=== PATIENT | female | born 1955 | race Caucasian/White ===

== ENCOUNTER 2023-07-01 13:20 | Outpatient (CLI) | payer MEDICARE, MEDICAID, SELFPAY ==
--- NOTE | 2023-07-01 13:33 | XR_ITS ---
WS: [id number] Left knee, 3 views, 07/01/2023 Clinical Data: PAIN IN LEFT KNEE Comparison: Left knee, 05/07/2019 Findings: There is severe narrowing of the medial joint compartment with sclerosis and irregularity of the adjo ining articular surfaces. There is a spur of the medial femoral condyle and medial tibial plateau. Th e posterior patella shows irregularity and spurring. There are no fractures or dislocations. The soft tissues are normal. Impression: Severe osteoarthritis of the medial joint compartment and spurring of the posterior left patella. Kellgren-Vel Classification: grade 4 (severe): large osteophytes, marked narrowing of joint spac e, severe sclerosis and definite deformity of bone ends
== END 2023-07-01 13:21 | disposition home or self-care (01) ==
PROVIDERS: PCP Nurse Practitioner Family; Visit Provider Nurse Practitioner
DX: M17.12 Unilateral primary osteoarthritis, left knee (principal); M25.762 Osteophyte, left knee
CPT/HCPCS: 73562

== ENCOUNTER 2023-09-06 13:30 | Outpatient (CLI) | payer MEDICARE, MEDICAID, SELFPAY ==
--- NOTE | 2023-09-06 13:39 | XR_ITS ---
WS: [id number] DEXA (DUAL ENERGY X-RAY ABSORPTIOMETRY) Bone mineral density was performed using a Senic machine. HISTORY: ASYMPTOMATIC MENOPAUSAL STATE COMPARISON: None available. Lumbar spine BMD (L1-L4): 1.048 g/cm2 T score: -1.1 Z score: -0.7 Total hip BMD: Left: 0.676 g/cm2. T score: -2.6 Z score: -2.2 Right: 0.722 g/cm2. T score: -2.3 Z score: -1.8 10 year probability of a major osteoporotic fracture is 21.2%. IMPRESSION: OSTEOPOROSIS based upon the WHO classification for females.
== END 2023-09-06 13:31 | disposition home or self-care (01) ==
LOC: RAD 13:31
PROVIDERS: PCP Nurse Practitioner; Visit Provider Nurse Practitioner
DX: Z78.0 Asymptomatic menopausal state (principal)
CPT/HCPCS: 77080

== ENCOUNTER 2024-04-07 00:26 | Emergency (ER) | payer MEDICARE, MEDICAID, SELFPAY ==
[2024-04-07 00:28] VITALS: BP 135/83; PULSE 95; RESP 16; TEMP 36.8; O2SAT 97
--- NOTE | 2024-04-07 01:10 | ED_ITS ---
HPI - Abdominal Pain 2 General: Chief Complaint: Abdominal Pain Stated Complaint: Kidneys are not working\Swelling Time Seen by Provider: 04/07/24 00:39 History of Present Illness: He presents to the ER with right-sided low back flank pain has been going on for a couple days. Patient says she has been pushing fluid which has helped. Patient also complains of lower extremity swelling during the same time. Patient denies any nausea vomiting fevers chills cough cold diarrhea constipation etc. Related Data Previous Rx's Medication Instructions Recorded sulfamethoxazole 800 1 tab PO BID #14 tabs 04/07/24 mg-trimethoprim 160 mg tablet (Bactrim DS) Allergies Allergy/AdvReac Type Severity Reaction Status Date / Time No Known Allergies Allergy Verified 04/07/24 00:35 Review of Systems 2 General: Reports: 10 or more systems reviewed and unremarkable except in HPI and below Physical Exam 2 Const: COMMON NORMALS: no acute distress, average body habitus, patient oriented x3, no limitations, healthy appearing, alert and well nourished HENMT: COMMON NORMALS: normocephalic, atraumatic, hearing grossly normal bilaterally, external ears normal, Normal external nose present and moist oral mucous membranes HEAD & SCALP: normocephalic and atraumatic NOSE: Normal external nose present EXTERNAL EAR: Yes external ears normal Neck/C-Spine: COMMON NORMALS: full ROM, no lymphadenopathy, supple, no meningeal signs, no JVD and Thyroid normal THYROID: Thyroid normal Resp: COMMON NORMALS: normal respiratory effort, No retractions, No use of accessory muscles and clear to auscultation bilaterally AUSCULTATION: clear to auscultation bilaterally Cardio: COMMON NORMALS: no JVD, regular rate, regular rhythm, S1 normal heart sound present, S2 normal heart sound present, No gallops present (Cardio), No clicks present (Cardio), No murmurs present (Cardio) and No rub (Cardio) R ATE: regular rate RHYTHM: regular rhythm HEART SOUNDS: S1 normal heart sound present and S2 normal heart sound present GI: COMMON NORMALS: Normal to inspection, nondistended, normoactive bowel sounds present, Soft to palpation, non-tender, No hepatosplenomegaly present and no masses PALPATION: Yes Soft to palpation and Yes No hepatosplenomegaly present Extremity: OTHER: Bilateral lower extremity edema 1-2+ pitting Neuro: COMMON NORMALS: patient oriented x3 SENSORIUM/ORIENTATION: Yes alert MENINGEAL SIGNS: Yes no meningeal signs Course 2 Vital Signs: Vital signs: Vital Signs Temperature 98.2 F 04/07/24 00:28 Pulse Rate 95 04/07/24 00:28 Respiratory Rate 16 04/07/24 00:28 Blood Pressure 135/83 04/07/24 00:28 Pulse Oximetry 97 04/07/24 00:28 Oxygen Delivery Me thod Room Air 04/07/24 00:28 MDM - Abdominal Pain Medical Decision Making Lab work revealed urinary tract infection otherwise pretty benign. Patient be started on Bactrim. Patient be discharged to follow-up with PCP Medical Records I reviewed the patient's medical records. Lab Data I reviewed the patient's lab results. 04/07/24 01:09 04/07/24 01:09 Labs/Radiology: Laboratory Results WBC 8.38 10^3/uL (3.29-11.43) 04/07/24 01:09 RBC 4.81 10^6/uL (3.85-5.65) 04/07/24 01:09 Hgb 14.70 g/dL (11.27-16.99) 04/07/24 01:09 Hct 44.6 % (36-47) 04/07/24 01:09 MCV 92.7 fl (85-98) 04/07/24 01:09 MCH 30.6 pg (27-33) 04/07/24 01:09 MCHC 33.0 g/dL (30-55) 04/07/24 01:09 RDW 12.7 % (12.1-15.1) 04/07/24 01:09 Plt Count 203 10^3/cmm (157-399) 04/07/24 01:09 MPV 9.1 fL (7.4-10.4) 04/07/24 01:09 Neut % (Auto) 67.1 % 04/07/24 01:09 Lymph % (Auto) 23.5 % 04/07/24 01:09 [place] % (Auto) 8.2 % 04/07/24 01:09 Eos % (Auto) 0.5 % 04/07/24 01:09 Baso % (Auto) 0.5 % 04/07/24 01:09 Neut # (Auto) 5.62 10^3/uL (1.8-7.7) 04/07/24 01:09 Lymph # (Auto) 2.0 10^3/uL (0.8-4.8) 04/07/24 01:09 [place] # (Auto) 0.7 10^3/uL (0.2-0.9) 04/07/24 01:09 Eos # (Auto) 0.0 10^3/uL (0.0-0.8) 04/07/24 01:09 Baso # (Auto) 0.0 10^3/uL (0.0-0.1) 04/07/24 01:09 Nucleated RBC % (auto) 0 % 04/07/24 01:09 Nucleated RBCs # 0.0 /100WBC 04/07/24 01:09 Sodium 139 mmol/L (136-145) 04/07/24 01:09 Potassium 3.8 mmol/L (3.5-5.1) 04/07/24 01:09 Chloride 102 mmol/L (98-107) 04/07/24 01:09 Carbon Dioxide 24 mmol/L (22-29) 04/07/24 01:09 Anion Gap 16.8 (5-19) 04/07/24 01:09 BUN 7 mg/dL (8-23) L 04/07/24 01:09 Creatinine 0.7 mg/dL (0.5-0.9) 04/07/24 01:09 GFR Calculation 83.5 mL/min (90-130) L 04/07/24 01:09 Glucose 119 mg/dL (65-115) H 04/07/24 01:09 Calculated Osmolality 287 mOsm/kg (285-295) 04/07/24 01:09 Calcium 8.7 mg/dL (8.5-10.5) 04/07/24 01:09 Magnesium 1.7 mg/dL (1.7-2.3) 04/07/24 01:09 Total Bilirubin 0.6 mg/dL (0.15-1.2) 04/07/24 01:09 AST 13 U/L (0-32) 04/07/24 01:09 ALT 13 U/L (0-33) 04/07/24 01:09 Alkaline Phosphatase 66 U/L (35-105) 04/07/24 01:09 NT-Pro-B Natriuret Pep < 36 pg/mL (0-125) 04/07/24 01:09 Total Protein 6.8 g/dL (6.6-8.7) 04/07/24 01:09 Albumin 4.3 g/dL (3.5-5.2) 04/07/24 01:09 Globulin 2.5 g/dL (1.3-4.6) 04/07/24 01:09 Urine Color [place] (Yellow) A 04/07/24 01:15 Urine Appearance Cloudy (CLEAR) A 04/07/24 01:15 Urine pH 5.5 (5-7) 04/07/24 01:15 Ur Specific [place] 1.011 (1.005-1.030) 04/07/24 01:15 Urine Protein Negative (Negative) 04/07/24 01:15 Urine Glucose (UA) Negative (Normal) 04/07/24 01:15 Urine Ketones Negative (Negative) 04/07/24 01:15 Urine Blood Negative (Negative) 04/07/24 01:15 Urine Nitrate Negative (Negative) 04/07/24 01:15 Urine Bilirubin Negative (Negative) 04/07/24 01:15 Urine Urobilinogen 0.2 mg/dL (Negative) 04/07/24 01:15 Ur Leukocyte Esterase 2+ (Negative) A 04/07/24 01:15 Urine RBC 0-2 /hpf (0-2) 04/07/24 01:15 Urine WBC 11-20 /hpf (0-5) H 04/07/24 01:15 Ur Squamous Epith Cells 0-5 /hpf (0-5) 04/07/24 01:15 Amorphous Sediment Not Reportable 04/07/24 01:15 Urine Bacteria None seen /hpf (NONE) 04/07/24 01:15 Hyaline Casts 0-4 /lpf H 04/07/24 01:15 All radiology interpretation(s) finalized by discharge Discharge Plan Discharge Patient Disposition: Home Clinical Impression: Acute lower urinary tract infection Condition: Stable Prescriptions: New sulfamethoxazole-trimethoprim [Bactrim DS] 800-160 mg tablet 1 tab PO BID Qty: 14 0RF Discharge Orders: Discharge ED (Routine); Ordered 04/07/24 Ordered By: Glenn uDmas Patient Instructions: Urinary Tract Infection in Women (DC) Activity Restrictions/Additional Instructions: Your evaluation ER showed you have a urinary tract infection. Please take all your antibiotics as directed. Please follow-up with your family physician in the next 2 days for further evaluation and treatment. Coding Level of Care Code ED Supervisor [employer]efaction for Darius Collier
[2024-04-07 01:18] LABS: Basophils % 0.5 %; Eosinophils % 0.5 %; Hematocrit 44.6 % (36-47); Lymphocytes % 23.5 %; Mean Corpuscular Hemoglobin 30.6 pg (27-33); Mean Corpuscular Volume 92.7 fl (85-98); Mean Platelet Volume 9.1 fL (7.4-10.4); Monocytes # 0.7 10^3/uL (0.2-0.9); Monocytes % 8.2 %; Neutrophils # 5.62 10^3/uL (1.8-7.7); Neutrophils % 67.1 %; Nucleated Red Blood Cells % 0 %; Platelet Count 203 10^3/cmm (157-399); Red Blood Count 4.81 10^6/uL (3.85-5.65); Red Cell Distribution Width 12.7 % (12.1-15.1); White Blood Count 8.38 10^3/uL (3.29-11.43)
[2024-04-07 01:19] LABS: Charge for UA Resulting for Rev
[2024-04-07 01:22] LABS: Bilirubin Urine Negative (Negative); Blood Urine Negative (Negative); Glucose Urine UA Negative (Normal); Ketones Urine Negative (Negative); Leukocyte Esterase Urine 2+ (Negative); Nitrate Urine Negative (Negative); Protein Urine Negative (Negative); Specific Gravity, Urine 1.011 (1.005-1.030); Urine Appearance Cloudy (CLEAR); Urobilinogen Urine 0.2 mg/dL (Negative); pH Urine 5.5 (5-7)
[2024-04-07 01:24] LABS: Bacteria Urine None Seen /hpf; Hyaline Casts Urine 0-4 /lpf; RBC Urine 0-2 /hpf (0-2); Squamous Epithelial Cell Urine 0-5 /hpf (0-5)
[2024-04-07 01:27] LABS: Urine Color Orange (Yellow)
[2024-04-07 01:54] LABS: Alanine Aminotransferase 13 U/L (0-33); Albumin Level 4.3 g/dL (3.5-5.2); Alkaline Phosphatase 66 U/L (35-105); Anion Gap 16.8 (5-19); Aspartate Amino Transferase 13 U/L (0-32); Blood Urea Nitrogen 7 mg/dL (8-23); Calcium 8.7 mg/dL (8.5-10.5); Carbon Dioxide 24 mmol/L (22-29); Chloride 102 mmol/L (98-107); Globulin 2.5 g/dL (1.3-4.6); Glomerular Filtration Rate 83.5 mL/min (90-130); Glucose 119 mg/dL (65-115); Magnesium 1.7 mg/dL (1.7-2.3); NT Pro B Type Natriuretic Pept < 36 pg/mL (0-125); Osmolality Calculated 287 mOsm/kg (285-295); Potassium 3.8 mmol/L (3.5-5.1); Sodium 139 mmol/L (136-145); Total Bilirubin 0.6 mg/dL (0.15-1.2); Total Protein 6.8 g/dL (6.6-8.7)
[2024-04-07] MEDS: sulfamethoxazole-trimeth DS 160-800 mg Tablet 1 TAB PO (03:07)
[2024-04-07 03:08] VITALS: BP 129/80; PULSE 78; RESP 16; O2SAT 96
== END 2024-04-07 03:09 | disposition home or self-care (01) ==
PROVIDERS: Emergency Provider Emergency Medicine
DX: N39.0 Urinary tract infection, site not specified (principal)
CPT/HCPCS: 36415; 80053; 81003; 81015; 83735; 83880; 85025; 99283

== ENCOUNTER 2025-01-21 11:47 | Emergency (ER) | payer MEDICARE, MEDICAID, SELFPAY ==
[2025-01-21 12:02] VITALS: BP 138/81; PULSE 93; RESP 20; TEMP 36.8; O2SAT 97; BMI 38.7
[2025-01-21 12:49] LABS: Basophils % 0.2 %; Eosinophils % 0.1 %; Hematocrit 42.8 % (36-47); Lymphocytes # 0.6 10^3/uL (0.8-4.8); Lymphocytes % 4.4 %; Mean Corpuscular HGB Conc 33.2 g/dL (30-55); Mean Corpuscular Hemoglobin 30.7 pg (27-33); Mean Corpuscular Volume 92.6 fl (85-98); Mean Platelet Volume 8.5 fL (7.4-10.4); Monocytes # 0.7 10^3/uL (0.2-0.9); Monocytes % 5.5 %; Neutrophils # 11.36 10^3/uL (1.8-7.7); Neutrophils % 89.4 %; Nucleated Red Blood Cells % 0 %; Platelet Count 192 10^3/cmm (157-399); Red Blood Count 4.62 10^6/uL (3.85-5.65); Red Cell Distribution Width 12.6 % (12.1-15.1); White Blood Count 12.71 10^3/uL (3.29-11.43)
[2025-01-21 13:16] LABS: Alanine Aminotransferase 12 U/L (0-33); Albumin Level 4.1 g/dL (3.5-5.2); Alkaline Phosphatase 67 U/L (35-105); Anion Gap 18.5 (5-19); Aspartate Amino Transferase 11 U/L (0-32); Blood Urea Nitrogen 13 mg/dL (8-23); Calcium 8.8 mg/dL (8.5-10.5); Carbon Dioxide 22 mmol/L (22-29); Chloride 103 mmol/L (98-107); Creatinine Clr Calc Pharmacy 84.0701; Globulin 2.4 g/dL (1.3-4.6); Glomerular Filtration Rate 99.4 mL/min (90-130); Glucose 131 mg/dL (65-115); Lipase 91 U/L (13-60); Osmolality Calculated 292 mOsm/kg (285-295); Potassium 3.5 mmol/L (3.5-5.1); Sodium 140 mmol/L (136-145); Total Bilirubin 0.6 mg/dL (0.15-1.2); Total Protein 6.5 g/dL (6.6-8.7)
--- NOTE | 2025-01-21 14:19 | ED_ITS ---
HPI - Abdominal Pain 2 General: Chief Complaint: Abdominal Pain Stated Complaint: abd pain, n/v Time Seen by Provider: 01/21/25 13:41 History of Present Illness: 69-year-old female who presents emergenc y room complaining epigastric upper abdominal pain with nausea vomiting that began this morning. Overnight she said she drank some lemon cayenne water and so evidently to detoxify herself this morning she thought she might have a little discomfort with urination and she drank some cranberry juice. She says despite all this she still has epigastric and upper abdominal pain nausea and vomiting she did have a stool this morning no hematochezia melena hematemesis or coffee-ground emesis. No fever sweats or chills. Remote history of an ectopic no other abdominal surgeries Associated Symptoms: Denies chills, dysuria and fever(s) Related Data Previous Rx's ?Medication ?Instructions ?Recorded sulfamethoxazole 800 1 tab PO BID #14 tabs mg-trimethoprim 160 mg tablet (Bactrim DS) cefdinir 300 mg capsule 300 mg PO BID #14 caps 01/21 phenazopyridine 200 mg tablet 200 mg PO Q8H 6 doses #6 tabs 01/21/25 (Pyridium) Allergies Allergy/AdvReac Type Severity Reaction Status Date / Time No Known Allergies Allergy Verified 01/21/25 12:05 Review of Systems 2 Const: Denies: fever(s) or chills Card: Denies: chest pain Resp: Denies: dyspnea GI: Denies: abdominal pain : Denies: dysuria, urinary frequency or urinary urgency Musc: Denies: neck pain or back pain Skin/Breast: Denies: rash Physical Exam 2 Const: GENERAL APPEARANCE: cooperative ORIENTATION/CONSCIOUSNESS: Yes awake, Yes oriented to person, Yes oriented to place and Yes oriented to time HENMT: COMMON NORMALS: normocephalic, atraumatic and hearing grossly normal bilaterally HEAD & SCALP: normocephalic and atraumatic Resp: COMMON NORMALS: normal respiratory effort, No retractions, No use of accessory muscles and clear to auscultation bilaterally AUSCULTATION: clear to auscultation bilaterally Cardio: COMMON NORMALS: regular rate, regular rhythm and No murmurs present (Cardio) RATE: regular rate RHYTHM: regular rhythm GI: COMMON NORMALS: Soft to palpation and No hepatosplenomegaly present A USCULTATION: Yes normoactive bowel sounds PALPATION: Yes Soft to palpation, No Tenderness to palpation present (GI), No Guarding due to palpation present (GI) and Yes No hepatosplenomegaly present Extremity: COMMON NORMALS: normal to inspection, capillary refill normal, no clubbing, cyanosis or edema, no calf tenderness and no pedal edema Neuro: SENSORIUM/ORIENTATION: Yes oriented to person, Yes oriented to place and Yes oriented to time Skin: COMMON NORMALS: no rashes or lesions noted GENERAL SKIN EXAM: no rashes or lesions noted Course 2 Vital Signs: Vital signs: Vital Signs Temperature 98.3 F 01/21/25 12:02 Pulse Rate 93 01/21/25 16:24 Respiratory Rate 20 H 01/21/25 12:02 Blood Pressure 111/83 01/21/25 16:24 Pulse Oximetry 94 01/21/25 16:24 Oxygen Delivery Me thod Room Air 01/21/25 15:31 MDM - Abdominal Pain Medical Decision Making Epigastric discomfort worsened with eating particular foods particularly patient knows with coffee. Patient has had dysuria symptoms. UA shows signs of cystitis we will start oral antibiotics. Also recommend patient start on OTC omeprazole. Follow-up with primary care Lab Data 01/21/25 12:37 01/21/25 12:37 Labs/Radiology: Laboratory Results WBC 12.71 10^3/uL (3.29-11.43) H 01/21/25 12:37 RBC 4.62 10^6/uL (3.85-5.65) 01/21/25 12:37 Hgb 14.20 g/dL (11.27-16.99) 01/21/25 12:37 Hct 42.8 % (36-47) 01/21/25 12:37 MCV 92.6 fl (85-98) 01/21/25 12:37 MCH 30.7 pg (27-33) 01/21/25 12:37 MCHC 33.2 g/dL (30-55) 01/21/25 12:37 RDW 12.6 % (12.1-15.1) 01/21/25 12:37 Plt Count 192 10^3/cmm (157-399) 01/21/25 12:37 MPV 8.5 fL (7.4-10.4) 01/21/25 12:37 Neut % (Auto) 89.4 % 01/21/25 12:37 Lymph % (Auto) 4.4 % 01/21/25 12:37 [place] % (Auto) 5.5 % 01/21/25 12:37 Eos % (Auto) 0.1 % 01/21/25 12:37 Baso % (Auto) 0.2 % 01/21/25 12:37 Neut # (Auto) 11.36 10^3/uL (1.8-7.7) H 01/21/25 12:37 Lymph # (Auto) 0.6 10^3/uL (0.8-4.8) L 01/21/25 12:37 [place] # (Auto) 0.7 10^3/uL (0.2-0.9) 01/21/25 12:37 Eos # (Auto) 0.0 10^3/uL (0.0-0.8) 01/21/25 12:37 Baso # (Auto) 0.0 10^3/uL (0.0-0.1) 01/21/25 12:37 Nucleated RBC % (auto) 0 % 01/21/25 12:37 Nucleated RBCs # 0.0 /100WBC 01/21/25 12:37 Sodium 140 mmol/L (136-145) 01/21/25 12:37 Potassium 3.5 mmol/L (3.5-5.1) 01/21/25 12:37 Chloride 103 mmol/L (98-107) 01/21/25 12:37 Carbon Dioxide 22 mmol/L (22-29) 01/21/25 12:37 Anion Gap 18.5 (5-19) 01/21/25 12:37 BUN 13 mg/dL (8-23) 01/21/25 12:37 Creatinine 0.6 mg/dL (0.5-0.9) 01/21/25 12:37 GFR Calculation 99.4 mL/min (90-130) 01/21/25 12:37 Glucose 131 mg/dL (65-115) H 01/21/25 12:37 Calculated Osmolality 292 mOsm/kg (285-295) 01/21/25 12:37 Calcium 8.8 mg/dL (8.5-10.5) 01/21/25 12:37 Total Bilirubin 0.6 mg/dL (0.15-1.2) 01/21/25 12:37 AST 11 U/L (0-32) 01/21/25 12:37 ALT 12 U/L (0-33) 01/21/25 12:37 Alkaline Phosphatase 67 U/L (35-105) 01/21/25 12:37 Total Protein 6.5 g/dL (6.6-8.7) L 01/21/25 12:37 Albumin 4.1 g/dL (3.5-5.2) 01/21/25 12:37 Globulin 2.4 g/dL (1.3-4.6) 01/21/25 12:37 Lipase 91 U/L (13-60) H 01/21/25 12:37 Urine Color Yellow (Yellow) 01/21/25 14:40 Urine Appearance Clear (CLEAR) 01/21/25 14:40 Urine pH 5.5 (5-7) 01/21/25 14:40 Ur Specific [place] 1.023 (1.005-1.030) 01/21/25 14:40 Urine Protein Trace (Negative) A 01/21/25 14:40 Urine Glucose (UA) Negative (Normal) 01/21/25 14:40 Urine Ketones 2+ (Negative) H 01/21/25 14:40 Urine Blood Negative (Negative) 01/21/25 14:40 Urine Nitrate Positive (Negative) A 01/21/25 14:40 Urine Bilirubin Negative (Negative) 01/21/25 14:40 Urine Urobilinogen 0.2 mg/dL (Negative) 01/21/25 14:40 Ur Leukocyte Esterase 1+ (Negative) A 01/21/25 14:40 Urine RBC 0-2 /hpf (0-2) 01/21/25 14:40 Urine WBC 21-50 /hpf (0-5) H 01/21/25 14:40 Ur Squamous Epith Cells 0-5 /hpf (0-5) 01/21/25 14:40 Amorphous Sediment Not Reportable 01/21/25 14:40 Urine Bacteria Trace /hpf (NONE) 01/21/25 14:40 Hyaline Casts 1.65 /lpf 01/21/25 14:40 No radiology studies performed this visit Discharge Plan Discharge Patient Disposition: Home Clinical Impression: Cystitis Condition: Stable Prescriptions: New cefdinir 300 mg capsule 300 mg PO BID Qty: 14 0RF phenazopyridine [Pyridium] 200 mg tablet 200 mg PO Q8H Qty: 6 0RF No Action Bactrim DS 800-160 mg tablet 1 tab PO BID Qty: 14 0RF Discharge Orders: Discharge ED (Routine); Ordered 01/21/25 Ordered By: Bishop Thao Referrals: Eugene Farah DO [Primary Care Provider, Family Practice] Discharge Diet: Usual diet Discharge Activity: Increase activity as tolerated Patient Instructions: Opioid Safety, Pain Management Activity Restrictions/Additional Instructions: Thank you for choosing [facility] for your healthcare needs today. It is very important that you follow up as instructed or that you return to the Emergency Department should you have concerns or if your condition changes or worsens in any way. You were seen in the emergency room with complaints of abdominal discomfort. Urine shows signs of bladder infection given initial dose of antibiotics in the emergency room start oral antibiotics tomorrow you are also given Pyridium to use as needed. Print Language: [place] Coding Level of Care Code ED Armored Car Messenger for Darius Collier
[2025-01-21 15:02] LABS: Bilirubin Urine Negative (Negative); Blood Urine Negative (Negative); Glucose Urine UA Negative (Normal); Ketones Urine 2+ (Negative); Leukocyte Esterase Urine 1+ (Negative); Nitrate Urine Positive (Negative); Protein Urine Trace (Negative); Specific Gravity, Urine 1.023 (1.005-1.030); Urine Appearance Clear (CLEAR); Urine Color Yellow (Yellow); Urobilinogen Urine 0.2 mg/dL (Negative); pH Urine 5.5 (5-7)
[2025-01-21 15:05] LABS: Add Urine Microscopic? YES; Bacteria Urine Trace /hpf; Hyaline Casts Urine 1.65 /lpf; RBC Urine 0-2 /hpf (0-2); Squamous Epithelial Cell Urine 0-5 /hpf (0-5); WBC Urine 21-50 /hpf (0-5)
[2025-01-21 15:10] LABS: Add Urine Culture? Yes
[2025-01-21 15:31] VITALS: BP 137/74; PULSE 92; O2SAT 92
[2025-01-21] MEDS: cefTRIAXone 1,000 MG in water for injection-sterile 2.1 ML 999 MG IM (16:02)
[2025-01-21 16:24] VITALS: BP 111/83; PULSE 93; O2SAT 94
--- NOTE | 2025-01-26 12:03 | PC.NURSE ---
PT STATES SHE WANTS HER MEDICATION SENT TO [facility], NURSE NOTIFIED PT THAT PHARMACY IS CLOSED UNTIL TUESDAY. PT STATES THAT IS FINE, I DON'T WANT [facility].
== END 2025-01-21 16:25 | disposition home or self-care (01) ==
PROVIDERS: Emergency Medicine; Emergency Provider Family Medicine; PCP Electrodiagnostic Medicine
DX: N30.90 Cystitis, unspecified without hematuria (principal)
CPT/HCPCS: 36415; 80053; 81001; 83690; 85025; 87077; 87086; 87186; 96372; 96374; 99284; J0696